=== PATIENT | male | born 1980 | race Two or more races ===

== ENCOUNTER 2017-11-29 19:57 | Emergency (ER) | payer BC ==
[~2017-11-29] VITALS: Ht 177.8 cm; Wt 86.2 kg
--- NOTE | 2017-11-29 20:00 | NUR ---
Nicolle solorzano in ED - 11/29/17 at [address] Owens at [facility] for MSE.
--- NOTE | 2017-11-29 20:36 | NUR ---
Dr. Owens at bedside for MSE.
[2017-11-29] MEDS ORDERED: HYDROCODONE/APAP 5-325MG TABLET ONE (20:57)
[2017-11-29] MEDS ORDERED: ONDANSETRON ODT 4 MG TAB.RAPDIS ONE (20:58)
[2017-11-29] MEDS ORDERED: CYCLOBENZAPRINE HCL 10 MG TABLET ONE (20:58)
[2017-11-29] MEDS ORDERED: ONDANSETRON ODT 4 MG TAB.RAPDIS SL ONE (21:00)
[2017-11-29] MEDS ORDERED: HYDROCODONE/APAP 5-325MG TABLET PO ONE (21:00)
[2017-11-29] MEDS ORDERED: CYCLOBENZAPRINE HCL 10 MG TABLET PO ONE (21:00)
--- NOTE | 2017-11-29 21:07 | NUR ---
Patient discharged to home in stable conditon. Written and verbal after care instructions given. Patient verbalizes understanding of instructions. Patient ambulated out of ER with steady gait, no acute signs of distress, VSS, all belongings taken.
[2017-11-29 21:12] VITALS: BP 126/84
== END 2017-11-29 21:12 | disposition home or self-care (01) ==
LOC: ER 19:59
DX: R20.0 Anesthesia of skin (principal); G54.0 Brachial plexus disorders; Z71.6 Tobacco abuse counseling
CPT/HCPCS: 99284; 99406; A4663; Q0162

== ENCOUNTER 2019-08-24 16:58 | Emergency (ER) | payer BC ==
[~2019-08-24] VITALS: Ht 177.8 cm; Wt 95.3 kg
[2019-08-24] MEDS ORDERED: HYDROCODONE/APAP 5-325MG TABLET PO ONE (18:15)
[2019-08-24] MEDS ORDERED: ONDANSETRON ODT 4 MG TAB.RAPDIS SL ONE (18:15)
[2019-08-24 18:25] LABS: BASOPHILS # (AUTO) 0.1 K/uL (0.0-8.0); BASOPHILS % (AUTO) 0.5 % (0.0-2.0); EOSINOPHILS # (AUTO) 0.1 K/uL (0.0-0.7); EOSINOPHILS % (AUTO) 0.5 % (0.0-7.0); HEMATOCRIT 43.6 % (36.7-47.1); HEMOGLOBIN 14.5 g/dL (12.5-16.3); LYMPHOCYTES # (AUTO) 2.4 K/uL (20.0-40.0); LYMPHOCYTES % (AUTO) 16.7 % (20.5-51.5); MEAN CORPUSCULAR HEMOGLOBIN 29.5 uug (23.8-33.4); MEAN CORPUSCULAR HGB CONC 33 g/dL (32.5-36.3); MEAN CORPUSCULAR VOLUME 88.5 fL (73.0-96.2); MONOCYTES # (AUTO) 0.9 K/uL (2.0-10.0); MONOCYTES % (AUTO) 6.5 % (0.0-11.0); NEUTROPHILS % (AUTO) 75.8 % (38.5-71.5); PLATELET COUNT (AUTO) 422 K/uL (152-348); RED BLOOD CELL COUNT(AUTO) 4.92 MIL/uL (4.06-5.63); WHITE BLOOD COUNT (AUTO) 14.5 K/uL (3.6-10.2)
--- NOTE | 2019-08-24 18:30 | NUR ---
Patient ambulated with stable gait. A/Ox4. Speech is clear, speaks in complete sentences. No acute neuro deficits. Patient came for c/o cp. Respiratory even and unlabored, no cough no sob. Denies any n/v/d.
[2019-08-24 18:34] LABS: CREATININE 1.6 mg/dL (0.6-1.3); POTASSIUM 4.1 mmol/L (3.5-5.1)
[2019-08-24] MEDS ORDERED: ONDANSETRON ODT 4 MG TAB.RAPDIS ONE (18:36)
[2019-08-24] MEDS ORDERED: HYDROCODONE/APAP 5-325MG TABLET ONE (18:36)
[2019-08-24 18:40] LABS: BILIRUBIN,DIRECT 0.1 mg/dL (0.0-0.2); BILIRUBIN,TOTAL 0.5 mg/dL (0.2-1.0); TOTAL PROTEIN, SERUM 8.8 g/dL (6.4-8.2)
--- NOTE | 2019-08-24 19:15 | NUR ---
received hand off and SBAR fr outgoing day shift RN Adri)
--- NOTE | 2019-08-24 19:16 | NUR ---
Report given to QUENTIN Arnold
--- NOTE | 2019-08-24 19:30 | NUR ---
pt brought down to CT via [facility] by trademark paralegal
--- NOTE | 2019-08-24 19:48 | NUR ---
pt back from ct monitored accordingly tolerable pain, epigastric to substernal
[2019-08-24] MEDS ORDERED: ONDANSETRON 4 MG/2 ML VIAL ONE (20:26)
[2019-08-24] MEDS ORDERED: HYDROMORPHONE 1 MG/1 ML DISP.SYRIN ONE (20:26)
[2019-08-24] MEDS ORDERED: HYDROMORPHONE 1 MG/1 ML DISP.SYRIN IV ONE (20:30)
[2019-08-24] MEDS ORDERED: ONDANSETRON 4 MG/2 ML VIAL IV ONE (20:30)
--- NOTE | 2019-08-24 20:50 | NUR ---
Patient discharged to home in stable conditon. Written and verbal after care instructions given. Patient verbalizes understanding of instructions. ambulatory w/ stable gait all belongings w/ pt iv dc, dressed
[2019-08-24 20:52] VITALS: BP 114/71
== END 2019-08-24 20:52 | disposition home or self-care (01) ==
LOC: ER 17:01
DX: R10.84 Generalized abdominal pain (principal); R11.10 Vomiting, unspecified; R07.89 Other chest pain
CPT/HCPCS: 36415; 71045; 74176; 80048; 80076; 83690; 84484; 85025; 93005; 99285; J1170; J2405; 70030-TC; A4663; Q0162